=== PATIENT | female | born 1990 | race Caucasian/White ===

== ENCOUNTER 2017-12-13 12:43 | Inpatient (IN) | payer OTHER ==
[2017-12-13] MEDS ORDERED: PITOCIN 30 UNITS/ LR 500 ML 500 ML IV SCH (14:00)
[2017-12-13] MEDS: Lactated Ringers 1,000 ML IV SCH ×2 (14:11→15:26)
[2017-12-13 14:33] LABS: BASOPHIL % 0.1 % (0.0-0.4); Basophil (Absolute #) 0.01 (0-0.4); Eosinophil % 0.2 % (0.00-5.0); Eosinophil (Absolute #) 0.02 (0-0.5); Granulocyte Absolute (ANC) 9.74 (1.4-6.9); Granulocytes % 80.4 % (36.0-66.0); Hematocrit 37.6 % (35-47); Hemoglobin 12.1 gm/dl (12.0-16.0); Lymphocyte (Absolute #) 1.59 (1.0-4.6); Lymphocytes % 13.1 % (24.0-44.0); Mean Corpuscular Hgb Concent. 32.2 g/dl (32-36); Monocyte (Absolute #) 0.75 (0.0-1.3); Monocytes % 6.2 % (0.0-12.0); Platelet Count 227 K/mm3 (150-450); Red Blood Count 4.32 M/mm3 (4.1-5.4); Red Cell Distribution Width 15.1 % (11.5-14.0); White Blood Count 12.1 K/mm3 (4.0-10.5)
[2017-12-13] MEDS ORDERED: Lactated Ringers 1,000 ML IV ONE (14:34)
[2017-12-13] MEDS ORDERED: OB EPIDURAL NAROPIN/SUFENTANIL IN NACL EPIDURAL PRN (14:34)
[2017-12-13] MEDS ORDERED: Ephedrine Sulfate 50 MG/ML IV PRN (14:34)
[2017-12-13] MEDS ORDERED: OMNIPEN 2 GM IV SCH (14:45)
[2017-12-13] MEDS ORDERED: OMNIPEN 2 GM / NACL 100ML 100 ML IV ONE (14:45)
[2017-12-13 16:53] LABS: Amphetamine,Urine NEGATIVE (NEGATIVE); Barbiturate,Urine NEGATIVE (NEGATIVE); Benzodiazepine,Urine NEGATIVE (NEGATIVE); Cocaine,Urine NEGATIVE (NEGATIVE); Methadone,Urine NEGATIVE (NEGATIVE); Opiate,Urine NEGATIVE (NEGATIVE); PCP,Urine NEGATIVE (NEGATIVE); THC,Urine NEGATIVE (NEGATIVE)
[2017-12-13] MEDS ORDERED: Mylicon 80MG PO PRN (17:16)
[2017-12-13] MEDS ORDERED: Rhogam Plus 300 MCG IM ONE (17:16)
[2017-12-13] MEDS ORDERED: TUCKS TP PRN (17:16)
[2017-12-13] MEDS ORDERED: Adacel Vial IM ONE (17:16)
[2017-12-13] MEDS ORDERED: Dermoplast Spray TP PRN (17:16)
[2017-12-13] MEDS ORDERED: NORCO 5/325 MG PO PRN (17:16)
[2017-12-13] MEDS ORDERED: Restoril 15 MG PO PRN (17:16)
[2017-12-13] MEDS ORDERED: Dulcolax 10 MG SUPP PR PRN (17:16)
[2017-12-13] MEDS ORDERED: TYLENOL EXTRA STRENGTH 500 MG PO PRN (17:16)
[2017-12-13] MEDS ORDERED: Anucort-HC SUPPOSITORY PR PRN (17:16)
[2017-12-13] MEDS ORDERED: CORTISONE 1% CREAM TP PRN (17:16)
[2017-12-13] MEDS ORDERED: Ambien 10 MG PO PRN (17:16)
[2017-12-13] MEDS ORDERED: LANSINOH 40 GM TOP PRN (17:16)
[2017-12-13] MEDS ORDERED: OMNIPEN 1GM / NaCl 100ML 100 ML IV SCH (17:59)
[2017-12-13 20:19] LABS: ABO TYPING O; ANTIBODY SCREEN NEGATIVE (NEGATIVE); RH TYPING NEGATIVE
[2017-12-13] MEDS: Colace 100 MG PO SCH (21:09)
[2017-12-13] MEDS: MOTRIN 400 MG PO PRN (23:00)
[2017-12-14 06:21] LABS: BASOPHIL % 0.2 % (0.0-0.4); Basophil (Absolute #) 0.02 (0-0.4); Eosinophil % 0.5 % (0.00-5.0); Eosinophil (Absolute #) 0.06 (0-0.5); Granulocyte Absolute (ANC) 9.52 (1.4-6.9); Granulocytes % 71.4 % (36.0-66.0); Hematocrit 30.6 % (35-47); Hemoglobin 9.8 gm/dl (12.0-16.0); Lymphocytes % 18.8 % (24.0-44.0); Mean Cell Volume 87.9 fl (78-100); Mean Platelet Volume 11.6 fl (6-9.5); Monocyte (Absolute #) 1.21 (0.0-1.3); Monocytes % 9.1 % (0.0-12.0); Platelet Count 205 K/mm3 (150-450); Red Blood Count 3.48 M/mm3 (4.1-5.4); Red Cell Distribution Width 14.9 % (11.5-14.0); White Blood Count 13.3 K/mm3 (4.0-10.5)
[2017-12-14 06:24] LABS: Mean Corpuscular Hemoglobin 28.1 pg (26-32)
[2017-12-14] MEDS: MOTRIN 400 MG PO PRN ×3 (06:31→21:50)
[2017-12-14] MEDS: Colace 100 MG PO SCH ×2 (11:43→21:50)
[2017-12-14] MEDS: FERREX 150 PO SCH (11:43)
[2017-12-14 20:59] VITALS: O2SAT 98
[2017-12-15] MEDS: MOTRIN 400 MG PO PRN ×2 (05:10→12:43)
--- NOTE | 2017-12-15 08:00 | PCM.DS ---
Discharge Summary Date of Admission: 12/13/17 14:45 Admitting Physician: JENNYFER LAM Consults: Consults on Case 12/13/17 14:34 Notify Anesthesia Provider PRN Primary Care Provider: MARCEL BAZAN Allergies Allergies No Known Drug Allergies Allergy (Unverified 09/06/14 21:46) Hospital Summary - Hospital Course Hospital Course: Pt is a 27 yo who came in at term [facility] with cervical change. SROM with clear fluid. Delivered baby vaginally without any complications. She did have a long first degree tear superior to the urethra, but not involving the urethra (and pt with minimal discomfort on urination). . Bleeding is decreasing. Denies dizziness. Only required motrin x 1 for pain control yesterday. Will be discharged to home today. - Vitals & Intake/Output Vital Signs: Vital Signs Temperature 98.3 F 12/15/17 02:00 Pulse Rate 81 12/15/17 02:00 Respiratory Rate 20 12/15/17 02:00 Blood Pressure 102/57 12/15/17 02:00 O2 Sat by Pulse Oximetry 98 12/14/17 20:00 Intake & Output: Intake & Output 12/12/17 12/13/17 12/14/17 12/15/17 11:59 11:59 11:59 11:59 Intake Total 1080 450 Balance 1080 450 Weight 187 kg - Lab Result Diagrams: 12/14/17 05:15 Discharge Exam General Appearance: no apparent distress, alert Neurologic Exam: oriented x 3, cooperative Skin Exam: normal color, warm, dry, No rash Eye Exam: eyes nml inspection Ears, Nose, Throat Exam: moist mucous membranes Neck Exam: normal inspection Respiratory Exam: normal breath sounds, lungs clear, No crackles/rales, No rhonchi, No wheezing Cardiovascular Exam: regular rate/rhythm, normal heart sounds, No murmur Gastrointestinal/Abdomen Exam: soft, normal bowel sounds, other (fundus firm inferior to umbilicus), No tenderness Extremity Exam: normal inspection, No pedal edema, No swelling Back Exam: normal inspection, No rash Final Diagnosis/Problem List - Final Discharge Diagnosis/Problem (1) Spontaneous vaginal delivery Current Visit: Yes Status: Acute Assessment & Plan: Doing great. home today on motrin prn. F/u with Dr. Bazan in 4-6 wks. (2) Anemia Current Visit: Yes Status: Acute Assessment & Plan: Home on iron. - Discharge Disposition: Home, Self-Care Condition: Good Prescriptions: New Ferrous Sulfate 325 mg PO DAILY #30 tablet Ibuprofen 800 mg PO TID PRN #30 tablet PRN Reason: Pain Continue Cyclobenzaprine HCl [Flexeril] 5 mg PO QHS PRN #5 tablet PRN Reason: Muscle Spasms Discontinued Alprazolam [Xanax 0.5 mg] 0.5 mg PO DAILY Follow up with: MARCEL BAZAN MD [Primary Care Provider] - 1 Week
[2017-12-15] MEDS: FERREX 150 PO SCH (12:43)
[2017-12-15] MEDS: Colace 100 MG PO SCH (12:43)
[2017-12-15 16:29] VITALS: BP 113/64; PULSE 89
--- NOTE | 2017-12-15 17:18 | XRAY ---
Indication: Right lower leg tenderness. No known injury. 2 days . Two-dimensional sonogram and color Doppler imaging of the major venous vessels of the right leg was performed. Comparison: None No thrombus seen in the examined deep venous vessels of the right leg including greater saphenous vein. Veins demonstrate normal compressibility. Venous waveforms are normal with and without augmentation. Targeted ultrasound over the anterior moy, region of interest, negative for suspicious solid/cystic mass or abnormal fluid collection. Impression: Right leg negative for DVT.
== END 2017-12-15 18:35 | disposition home or self-care (01) | DRG 775 ==
LOC: OB 12:43 → OBSVTOIN 14:45
PROVIDERS: ADMIT Family Medicine; ATTEND Family Medicine
PROC: 10E0XZZ Delivery of Products of Conception, External Approach (ICD-10-PCS; principal; 2017-12-13)
DX: O80 Encounter for full-term uncomplicated delivery (principal); Z3A.39 39 weeks gestation of pregnancy; Z37.0 Single live birth; D64.9 Anemia, unspecified
CPT/HCPCS: 36415; 80307; 85025; 85461; 86850; 86900; 86901; 90715; 93971; 96372; G0378; J0290; J2590; J2790; J2795; A9270-GY

== ENCOUNTER 2019-06-13 05:28 | Inpatient (IN) | payer OTHER ==
[2019-06-13] MEDS ORDERED: Pitocin 10 UNITS/ML ONE (05:45)
[2019-06-13] MEDS ORDERED: MOTRIN 400 MG ONE (06:08)
[2019-06-13] MEDS ORDERED: CORTISONE 1% CREAM TP PRN (06:10)
[2019-06-13] MEDS ORDERED: Dulcolax 10 MG SUPP PR PRN (06:10)
[2019-06-13] MEDS ORDERED: Dermoplast Spray TP PRN (06:10)
[2019-06-13] MEDS ORDERED: LANSINOH 40 GM TOP PRN (06:10)
[2019-06-13] MEDS ORDERED: TUCKS TP PRN (06:10)
[2019-06-13] MEDS ORDERED: Mylicon 80MG PO PRN (06:10)
[2019-06-13] MEDS ORDERED: NORCO 5/325 MG PO PRN (06:10)
[2019-06-13] MEDS ORDERED: Anucort-HC SUPPOSITORY PR PRN (06:10)
[2019-06-13] MEDS: MOTRIN 400 MG PO PRN ×3 (06:17→22:16)
[2019-06-13 06:45] LABS: BASOPHIL % 0.1 % (0.0-0.4); Basophil (Absolute #) 0.02 (0-0.4); Eosinophil % 0.4 % (0.00-5.0); Eosinophil (Absolute #) 0.07 (0-0.5); Granulocyte Absolute (ANC) 13.54 (1.4-6.9); Granulocytes % 81.4 % (36.0-66.0); Hematocrit 33.8 % (35-47); Hemoglobin 10.9 gm/dl (12.0-16.0); Lymphocyte (Absolute #) 1.92 (1.0-4.6); Lymphocytes % 11.5 % (24.0-44.0); Mean Cell Volume 87.8 fl (78-100); Mean Corpuscular Hemoglobin 28.3 pg (26-32); Mean Corpuscular Hgb Concent. 32.2 g/dl (32-36); Mean Platelet Volume 11.1 fl (6-9.5); Monocyte (Absolute #) 1.09 (0.0-1.3); Monocytes % 6.6 % (0.0-12.0); Platelet Count 252 K/mm3 (150-450); Red Blood Count 3.85 M/mm3 (4.1-5.4); Red Cell Distribution Width 15.3 % (11.5-14.0); White Blood Count 16.6 K/mm3 (4.0-10.5)
[2019-06-13 09:08] LABS: ABO TYPING O
[2019-06-13 09:09] LABS: ANTIBODY SCREEN NEGATIVE (NEGATIVE); RH TYPING NEGATIVE
[2019-06-13] MEDS: Colace 100 MG PO SCH ×2 (09:20→21:00)
[2019-06-13] MEDS: FERREX 150 PO SCH (10:17)
[2019-06-13] MEDS: TYLENOL EXTRA STRENGTH 500 MG PO PRN ×2 (11:03→19:19)
[2019-06-14] MEDS: TYLENOL EXTRA STRENGTH 500 MG PO PRN (01:54)
[2019-06-14 06:58] LABS: Hematocrit 29.8 % (35-47); Hemoglobin 9.3 gm/dl (12.0-16.0); Mean Cell Volume 89.2 fl (78-100); Mean Corpuscular Hemoglobin 27.8 pg (26-32); Mean Corpuscular Hgb Concent. 31.2 g/dl (32-36); Mean Platelet Volume 11.4 fl (6-9.5); Platelet Count 248 K/mm3 (150-450); Red Blood Count 3.34 M/mm3 (4.1-5.4); Red Cell Distribution Width 15.3 % (11.5-14.0); White Blood Count 12.7 K/mm3 (4.0-10.5)
[2019-06-14 07:16] LABS: BAND 4 % (0.0-2.0); Eosinophil 1 % (0.00-3.0); Lymphocytes 28 % (24-44); Monocyte 3 % (0.0-12.0); Neutrophils 64 % (36.0-66.0); Total Cells Counted 100
[2019-06-14 07:18] LABS: ANISOCYTOSIS 1+; Platelet Estimate NORMAL (NORMAL)
[2019-06-14 07:19] LABS: Granulocyte Absolute (ANC) 8.64 (1.4-6.9)
[2019-06-14] MEDS ORDERED: Rhogam Plus 300 MCG IM ONE (08:00)
[2019-06-14] MEDS: FERREX 150 PO SCH (09:04)
[2019-06-14] MEDS: Colace 100 MG PO SCH (09:04)
[2019-06-14] MEDS: MOTRIN 400 MG PO PRN ×2 (09:05→16:46)
--- NOTE | 2019-06-14 16:09 | PCM.DS ---
Discharge Summary Date of Admission: 06/13/19 05:28 Admitting Physician: MARCEL BAZAN Consults: Consults on Case 06/13/19 06:10 Notify Physician Primary Care Provider: MARCEL BAZAN Allergies Allergies No Known Drug Allergies Allergy (Unverified 09/06/14 21:46) Hospital Summary - Hospital Course Hospital Course: patient arrived and delivered precipitously on 06/13 within several minutes of arrival. had uncomplicated , minimal lochia and mild pain. baby was transferred for respiratory issues, mom GBS + and unable to give any prophylactic abx secondary to precip. delivery - Vitals & Intake/Output Vital Signs: Vital Signs Temperature 98.3 F 06/14/19 02:00 Pulse Rate 81 06/14/19 09:00 Respiratory Rate 18 06/14/19 09:00 Blood Pressure 109/53 06/14/19 09:00 O2 Sat by Pulse Oximetry Intake & Output: Intake & Output 06/12/19 06/13/19 06/14/19 06/15/19 11:59 11:59 11:59 11:59 Weight 83.461 kg - Lab Result Diagrams: 06/14/19 06:43 Lab Results-Last 24 Hrs: Lab Results-Last 24 Hours 06/13/19 06/14/19 Range/Units 07:30 06:43 WBC 12.7 H (4.0-10.5) K/mm3 RBC 3.34 L (4.1-5.4) M/mm3 Hgb 9.3 L (12.0-16.0) gm/dl Hct 29.8 L (35-47) % MCV 89.2 (78-100) fl MCH 27.8 (26-32) pg MCHC 31.2 L (32-36) g/dl RDW 15.3 H (11.5-14.0) % Plt Count 248 (150-450) K/mm3 MPV 11.4 H (6-9.5) fl Absolute Granulocytes 8.64 H (1.4-6.9) Segmented Neutrophils 64 (36.0-66.0) % Band Neutrophils 4 H (0.0-2.0) % Lymphocytes (Manual) 28 (24-44) % Monocytes (Manual) 3 (0.0-12.0) % Eosinophils (Manual) 1 (0.00-3.0) % Platelet Estimate NORMAL (NORMAL) RBC Morphology ABNORMAL Anisocytosis 1+ Screen SEE SEPERATE REPORT Discharge Exam General Appearance: no apparent distress, alert Respiratory Exam: normal breath sounds, lungs clear, No respiratory distress Cardiovascular Exam: regular rate/rhythm, normal heart sounds Gastrointestinal/Abdomen Exam: soft, No tenderness, No mass Extremity Exam: normal inspection, normal range of motion Skin Exam: normal color, warm, dry Final Diagnosis/Problem List - Final Discharge Diagnosis/Problem (1) Spontaneous vaginal delivery Current Visit: No Status: Acute Code(s): O80 - ENCOUNTER FOR FULL-TERM UNCOMPLICATED DELIVERY - Discharge Disposition: Home, Self-Care Condition: Stable Prescriptions: No Action Cyclobenzaprine HCl [Flexeril] 5 mg PO QHS PRN #5 tablet PRN Reason: Muscle Spasms Ferrous Sulfate 325 mg PO DAILY #30 tablet Ibuprofen 800 mg PO TID PRN #30 tablet PRN Reason: Pain Follow up with: MARCEL BAZAN MD [Primary Care Provider] - 1 Week
[2019-06-14 17:32] VITALS: BP 121/61; PULSE 79
== END 2019-06-14 17:55 | disposition home or self-care (01) | DRG 807 ==
LOC: INTOOBSV 05:28 → UNDOADMOB 05:28 → OBSVTOIN 05:28 → OB 05:28
PROVIDERS: ADMIT Family Medicine; ATTEND Family Medicine
PROC: 10E0XZZ Delivery of Products of Conception, External Approach (ICD-10-PCS; principal; 2019-06-13)
DX: O99.824 Streptococcus B carrier state complicating childbirth (principal); Z37.0 Single live birth; Z3A.40 40 weeks gestation of pregnancy
CPT/HCPCS: 36415; 85025; 85461; 86850; 86900; 86901; 87340; 96372; G0378; J2590; J2790; A9270-GY

== ENCOUNTER 2019-11-10 12:02 | Emergency (ER) | payer OTHER ==
[2019-11-10] MEDS ORDERED: TYLENOL 325 MG ONE (12:19)
[2019-11-10] MEDS ORDERED: MOTRIN 600 MG ONE (12:19)
[2019-11-10] MEDS: MOTRIN 600 MG PO STA (12:20)
--- NOTE | 2019-11-10 12:20 | ERPHSYRPT ---
- History of Present Illness Time Seen by Provider: 11/10/19 12:18 Source: patient Exam Limitations: no limitations Patient Subjective Stated Complaint: pt here for fever,aches, chills since last night Triage Nursing Assessment: pt alert, resp easy, skin w/d/p.moves all ext well , abd soft Physician History: c/o fever,aches, chills since last night Timing/Duration: yesterday Cough Quality/Degree: no cough Associated Symptoms: fever, chills, muscle aches, sore throat International travel in last 2 weeks: No Allergies/Adverse Reactions: No Known Drug Allergies Allergy (Verified 11/10/19 12:13) Hx Tetanus, Diphtheria Vaccination/Date Given: Yes Hx Influenza Vaccination/Date Given: No Hx Pneumococcal Vaccination/Date Given: No Immunizations Up to Date: Yes - Review of Systems Constitutional: Fever, Chills, Malaise Eyes: No Symptoms Ears, Nose, & Throat: Throat Pain Respiratory: No Symptoms Cardiac: No Symptoms Abdominal/Gastrointestinal: No Symptoms Genitourinary Symptoms: No Symptoms Musculoskeletal: No Symptoms - Past Medical History Pertinent Past Medical History: No Musculoskeletal History: Other - Past Surgical History Past Surgical History: Yes Neuro Surgical History: Other Other Surgical History: HEAD INJURY AGE OF 9. STATES THEY FIXED A FRACTURE OF SKULL - Social History Smoking Status: Never smoker Exposure to second hand smoke: No Drug Use: none Patient Lives Alone: No - Female History Hx Last Menstrual Period: unsure Hx Now: No - Nursing Vital Signs Nursing Vital Signs: Initial Vital Signs Pulse Rate 140 H 11/10/19 12:09 Respiratory Rate 18 11/10/19 12:09 Blood Pressure 126/76 11/10/19 12:09 O2 Sat by Pulse Oximetry 99 11/10/19 12:09 Pain Scale Pain Intensity 6 - Physical Exam General Appearance: no apparent distress, alert Eye Exam: PERRL/EOMI, eyes nml inspection Ears, Nose, Throat Exam: normal ENT inspection, TMs normal, pharynx normal, moist mucous membranes Neck Exam: normal inspection, non-tender, supple, full range of motion Respiratory Exam: normal breath sounds, lungs clear, No respiratory distress Cardiovascular Exam: regular rate/rhythm, normal heart sounds Gastrointestinal/Abdomen Exam: soft, No tenderness Back Exam: normal inspection, No CVA tenderness, No vertebral tenderness Extremity Exam: normal inspection, normal range of motion Neurologic Exam: alert, oriented x 3, cooperative, normal mood/affect, sensation nml, No motor deficits Skin Exam: normal color, warm, dry, No rash Lymphatic Exam: No adenopathy SpO2: 99 - Course Nursing assessment & vital signs reviewed: Yes Ordered Tests: Active Orders 24 hr Category Date Time Status BMP Stat Lab 11/10/19 12:25 Completed CBC W DIFF Stat Lab 11/10/19 12:25 Completed Medication Summary Discontinued Medications Generic Name Dose Route Start Last Admin Trade Name Carmelo PRN Reason Stop Dose Admin Acetaminophen 975 mg 11/10/19 12:16 11/10/19 12:21 Tylenol 325 Mg PO 11/10/19 12:17 975 mg STAT STA Administration Acetaminophen Confirm 11/10/19 12:19 Tylenol 325 Mg Administered 11/10/19 12:20 Dose 975 mg .ROUTE .STK-MED ONE Ibuprofen 600 mg 11/10/19 12:16 11/10/19 12:20 Motrin 600 Mg PO 11/10/19 12:17 600 mg STAT STA Administration Ibuprofen Confirm 11/10/19 12:19 Motrin 600 Mg Administered 11/10/19 12:20 Dose 600 mg .ROUTE .STK-MED ONE Lab/Rad Data: Laboratory Result Diagrams 11/10/19 12:25 11/10/19 12:25 Laboratory Results 11/10/19 11/10/19 11/10/19 Range/Units 12:25 12:25 12:25 WBC 5.6 (4.0-10.5) K/mm3 RBC 4.17 (4.1-5.4) M/mm3 Hgb 11.9 L (12.0-16.0) gm/dl Hct 37.3 (35-47) % MCV 89.4 (78-100) fl MCH 28.5 (26-32) pg MCHC 31.9 L (32-36) g/dl RDW 14.1 H (11.5-14.0) % Plt Count 178 (150-450) K/mm3 MPV 11.0 (7.5-11.0) fl Gran % 76.5 H (36.0-66.0) % Eos # (Auto) 0.01 (0-0.5) Absolute Lymphs (auto) 0.66 L (1.0-4.6) Absolute Monos (auto) 0.64 (0.0-1.3) Lymphocytes % 11.7 L (24.0-44.0) % Monocytes % 11.4 (0.0-12.0) % Eosinophils % 0.2 (0.00-5.0) % Basophils % 0.2 (0.0-0.4) % Absolute Granulocytes 4.30 (1.4-6.9) Basophils # 0.01 (0-0.4) Sodium 138 (137-145) mmol/L Potassium 3.9 (3.5-5.1) mmol/L Chloride 106 (98-107) mmol/L Carbon Dioxide 25 (22-30) mmol/L Anion Gap 12.3 (5-15) MEQ/L BUN 10 (7-17) mg/dL Creatinine 0.59 (0.52-1.04) mg/dL Estimated GFR > 60.0 ML/MIN Glucose 99 (74-106) mg/dL Calcium 9.2 (8.4-10.2) mg/dL Influenza Type A Ag POSITIVE (NEGATIVE) Influenza Type B Ag NEGATIVE (NEGATIVE) RSV (PCR) NEGATIVE (Negative) - Progress Progress: improved Air Movement: good Counseled pt/family regarding: lab results, diagnosis, need for follow-up - Departure Departure Disposition: Home Clinical Impression: Influenza A Condition: Stable Critical Care Time: No Referrals: MARCEL BAZAN MD [Primary Care Provider] - Instructions: Fever, Adult (DC), Flu, Adult (DC) Additional Instructions: Discharge/Care Plan GRACIELA VARGAS was seen on 11/10/19 in the Emergency Room. The patient was counseled regarding Diagnosis,Lab results, Imaging studies, need for follow up and when to return to the Emergency Room. Prescriptions given: Discharge Note I have spoken with the patient and/or caregivers. I have explained the patient' s condition, diagnosis and treatment plan based on the information available to me at this time. I have answered the patient's and/or caregiver's questions and addressed any concerns. The patient and/or caregivers have as good understanding of the patient's diagnosis, condition and treatment plan as can be expected at this point. The vital signs have been stable. The patient's condition is stable and appropriate for discharge from the emergency department. The patient will pursue further outpatient evaluation with the primary care physician or other designated or consulting physician as outlined in the discharge instructions. The patient and/or caregivers are agreeable to this plan of care and follow-up instructions have been explained in detail. The patient and/or caregivers have received these instruction. The patient/and or caregivers are aware that any significant change in condition or worsening of symptoms should prompt an immediate return to this or the closest emergency department or call 911. Prescriptions: Oseltamivir 75 mg [Tamiflu 75MG Capsule] 75 mg PO BID #10 cap
[2019-11-10] MEDS: TYLENOL 325 MG PO STA (12:21)
[2019-11-10 12:33] LABS: BASOPHIL % 0.2 % (0.0-0.4); Basophil (Absolute #) 0.01 (0-0.4); Eosinophil % 0.2 % (0.00-5.0); Eosinophil (Absolute #) 0.01 (0-0.5); Hematocrit 37.3 % (35-47); Hemoglobin 11.9 gm/dl (12.0-16.0); Lymphocyte (Absolute #) 0.66 (1.0-4.6); Lymphocytes % 11.7 % (24.0-44.0); Mean Cell Volume 89.4 fl (78-100); Mean Corpuscular Hemoglobin 28.5 pg (26-32); Mean Corpuscular Hgb Concent. 31.9 g/dl (32-36); Monocyte (Absolute #) 0.64 (0.0-1.3); Monocytes % 11.4 % (0.0-12.0); Neutrophil % 76.5 % (36.0-66.0); Platelet Count 178 K/mm3 (150-450); Red Blood Count 4.17 M/mm3 (4.1-5.4); Red Cell Distribution Width 14.1 % (11.5-14.0); White Blood Count 5.6 K/mm3 (4.0-10.5)
[2019-11-10 12:42] LABS: ANION GAP 12.3 MEQ/L (5-15); BLOOD UREA NITROGEN 10 mg/dL (7-17); CHLORIDE 106 mmol/L (98-107); Calcium 9.2 mg/dL (8.4-10.2); Carbon Dioxide 25 mmol/L (22-30); Creatinine 1 0.59 mg/dL (0.52-1.04); Glucose 99 mg/dL (74-106); Potassium 3.9 mmol/L (3.5-5.1); SODIUM 138 mmol/L (137-145)
[2019-11-10 13:08] LABS: INFLUENZA A POSITIVE (NEGATIVE); INFLUENZA B NEGATIVE (NEGATIVE); RESPIRATORY SYNCTIAL VIRUS NEGATIVE (Negative)
[2019-11-10] MEDS ORDERED: Tamiflu 75MG Capsule PO ONE (13:19)
[2019-11-10] MEDS: Tamiflu 75MG Capsule PO ONE (13:20)
[2019-11-10 13:54] VITALS: BP 107/67; PULSE 96; O2SAT 97
== END 2019-11-10 13:53 | disposition home or self-care (01) ==
LOC: ED 12:02
DX: J09.X2 Influenza due to identified novel influenza A virus with other respiratory manifestations (principal)
CPT/HCPCS: 36415; 80048; 85025; 87631; 99283; A9270-GY

== ENCOUNTER 2024-07-03 07:29 | Emergency (ER) | payer OTHER ==
[2024-07-03 07:48] VITALS: TEMP 97.6
[2024-07-03] MEDS ORDERED: Sodium Chloride 0.9% 1000 ML 1,000 ML ONE ×2 (08:00→10:14)
[2024-07-03] MEDS ORDERED: MORPHINE SULFATE 4 MG INJ ONE (08:00)
[2024-07-03] MEDS ORDERED: Zofran 4 MG/2 ML VIAL ONE (08:00)
[2024-07-03] MEDS: Sodium Chloride 0.9% 1000 ML 1,000 ML IV STA (08:03)
[2024-07-03] MEDS: MORPHINE SULFATE 4 MG INJ IV ONE (08:03)
[2024-07-03] MEDS: Zofran 4 MG/2 ML VIAL IV ONE (08:03)
--- NOTE | 2024-07-03 08:04 | ERPHSYRPT ---
- History of Present Illness Time Seen by Provider: 07/03/24 07:54 Historian: patient Exam Limitations: no limitations Patient Subjective Stated Complaint: pt here for pain to right lower abd that radiates to flank area, pain started at about 0400 this am with some vomiting Triage Nursing Assessment: pt alert, resp easy, moaning at time, restless in bed, skin w.d.p.chest clear, abd soft with bs heard, no edema noted. moves all ext well Physician History: 33 years old healthy female presented in the ER with complaints of sudden onset right lower quadrant pain waking her up from sleep around 4 AM with associated nausea and multiple episodes of nonprojectile, nonbilious vomiting without hematemesis. Patient reports some radiation of pain to the back and right flank area. Denies any associated urinary complaints. No fever or chills reported. Reports now pain is more in the suprapubic and the center of her abdomen. Allergies/Adverse Reactions: No Known Drug Allergies Allergy (Verified 07/03/24 07:38) Hx Tetanus, Diphtheria Vaccination/Date Given: No Hx Influenza Vaccination/Date Given: No Hx Pneumococcal Vaccination/Date Given: No Immunizations Up to Date: Yes Travel Risk - International Travel Have you traveled outside of the country in past 3 weeks: No - Emerging Infectious Disease Are you exhibiting symptoms associated with any current EIDs: Yes Symptoms: Abdominal Pain, Vomitting - Review of Systems Constitutional: No Symptoms Ears, Nose, & Throat: No Symptoms Respiratory: No Symptoms Cardiac: No Symptoms Abdominal/Gastrointestinal: Abdominal Pain, Nausea, Vomiting Genitourinary Symptoms: No Symptoms Musculoskeletal: Back Pain Skin: No Symptoms Neurological: No Symptoms Psychological: No Symptoms Endocrine: No Symptoms Hematologic/Lymphatic: No Symptoms - Past Medical History Pertinent Past Medical History: No Musculoskeletal History: Other - Past Surgical History Past Surgical History: Yes Neuro Surgical History: Other Other Surgical History: HEAD INJURY AGE OF 9. STATES THEY FIXED A FRACTURE OF SKULL - Female History Hx Last Menstrual Period: unsure Hx Now: (UNKN) - Social History Smoking Status: Never smoker Exposure to second hand smoke: No Drug Use: marijuana Patient Lives Alone: No - Social Determinants of Health Will the patient participate in the screening: Declined to provide - Nursing Vital Signs Nursing Vital Signs: Initial Vital Signs Pulse Rate 72 07/03/24 07:39 Respiratory Rate 14 07/03/24 07:39 Blood Pressure 139/87 07/03/24 07:39 O2 Sat by Pulse Oximetry 100 07/03/24 07:39 Pain Scale Pain Intensity 4 - Physical Exam General Appearance: no apparent distress Eye Exam: PERRL/EOMI Ears, Nose, Throat Exam: normal ENT inspection Neck Exam: normal inspection, full range of motion Respiratory Exam: normal breath sounds, lungs clear Cardiovascular Exam: regular rate/rhythm, normal heart sounds Gastrointestinal/Abdomen Exam: soft, normal bowel sounds, tenderness (Right lower quadrant/suprapubic), No guarding, No rebound Extremity Exam: normal inspection, normal range of motion Neurologic Exam: alert, oriented x 3, cooperative Skin Exam: normal color SpO2 Interpretation: normal SpO2: 100 O2 Delivery: Room Air Ordered Tests: Active Orders 24 hr Category Date Time Status IV Insertion STAT Care 07/03/24 07:54 Active NPO (ED) STAT Care 07/03/24 07:54 Active ABDOMEN AND PELVIS W/0 CONTRAS [CT] Stat Exams 07/03/24 07:54 Completed CBC W DIFF Stat Lab 07/03/24 08:11 Completed CMP Stat Lab 07/03/24 08:11 Completed CULTURE,URINE Stat Lab 07/03/24 07:54 Received HCG QUALITATIVE, URINE Stat Lab 07/03/24 07:54 Completed LIPASE Stat Lab 07/03/24 08:11 Completed UA W/RFX UR CULTURE Stat Lab 07/03/24 07:54 Completed Medication Summary Generic Name Dose Route Start Last Admin Trade Name Freq PRN Reason Stop Dose Admin Sodium Chloride 1,000 mls @ 125 mls/hr 07/03/24 10:15 07/03/24 12:26 Sodium Chloride 0.9% 1000 Ml IV 08/02/24 10:14 Infused .Q8H GRISEL Infusion Tamsulosin HCl 0.8 mg 07/04/24 10:11 07/03/24 10:19 Tamsulosin Hcl 0.4 Mg Cap PO 07/04/24 10:12 0.8 mg ONCE ONE Administration Discontinued Medications Generic Name Dose Route Start Last Admin Trade Name Freq PRN Reason Stop Dose Admin Acetaminophen 1,000 mg 07/03/24 11:32 07/03/24 11:42 Acetaminophen 500 Mg Tablet PO 07/03/24 11:33 1,000 mg STAT STA Administration Acetaminophen Confirm 07/03/24 11:40 Acetaminophen 500 Mg Tablet Administered 07/03/24 11:41 Dose 1,000 mg .ROUTE .STK-MED ONE Sodium Chloride 1,000 mls @ 999 mls/hr 07/03/24 07:54 07/03/24 09:08 Sodium Chloride 0.9% 1000 Ml IV 07/03/24 08:54 Infused .Q1H1M STA Infusion Sodium Chloride Confirm 07/03/24 08:00 Sodium Chloride 0.9% 1000 Ml Administered 07/03/24 08:01 Dose 1,000 mls @ ud .ROUTE .STK-MED ONE Ceftriaxone Sodium 2 gm in 100 mls @ 200 mls/hr 07/03/24 10:13 07/03/24 10:53 Rocephin 2 Gm/100 Ml Nacl IV 07/03/24 10:42 Infused STAT ONE Infusion Ceftriaxone Sodium Confirm 07/03/24 10:14 Rocephin 2 Gm/100 Ml Nacl Administered 07/03/24 10:15 Dose 2 gm in 100 mls @ ud IV .STK-MED ONE Ketorolac Tromethamine 30 mg 07/03/24 09:00 07/03/24 09:01 Ketorolac Tromethamine 30 Mg/Ml Inj IV 07/03/24 09:01 30 mg STAT ONE Administration Ketorolac Tromethamine Confirm 07/03/24 09:00 Ketorolac Tromethamine 30 Mg/Ml Inj Administered 07/03/24 09:01 Dose 30 mg .ROUTE .STK-MED ONE Morphine Sulfate 4 mg 07/03/24 07:54 07/03/24 08:03 Morphine Sulfate 4 Mg/Ml Injection IV 07/03/24 07:55 4 mg STAT ONE Administration Morphine Sulfate Confirm 07/03/24 08:00 Morphine Sulfate 4 Mg/Ml Injection Administered 07/03/24 08:01 Dose 4 mg .ROUTE .STK-MED ONE Ondansetron HCl 4 mg 07/03/24 07:54 07/03/24 08:03 Ondansetron Hcl 4 Mg/2 Ml Vial IV 07/03/24 07:55 4 mg STAT ONE Administration Ondansetron HCl Confirm 07/03/24 08:00 Ondansetron Hcl 4 Mg/2 Ml Vial Administered 07/03/24 08:01 Dose 4 mg .ROUTE .STK-MED ONE Tamsulosin HCl Confirm 07/03/24 10:14 Tamsulosin Hcl 0.4 Mg Cap Administered 07/03/24 10:15 Dose 0.8 mg .ROUTE .STK-MED ONE Tamsulosin HCl Confirm 07/03/24 11:40 Tamsulosin Hcl 0.4 Mg Cap Administered 07/03/24 11:41 Dose 0.8 mg .ROUTE .STK-MED ONE Lab/Rad Data: Laboratory Result Diagrams 07/03/24 08:11 07/03/24 08:11 Laboratory Results 07/03/24 07/03/24 07/03/24 Range/Units 08:11 08:11 07:54 WBC 16.2 H (3.98-10.04) x10^3/uL RBC 4.37 (3.93-5.22) x10^6/uL Hgb 13.1 (11.2-15.7) g/dL Hct 39.0 (34.1-44.9) % MCV 89.2 (79.4-94.8) fL MCH 30.0 (25.6-32.2) pg MCHC 33.6 (32.2-35.5) g/dL RDW 12.7 (11.7-14.4) % Plt Count 248 (182-369) x10^3/uL MPV 11.2 (9.4-12.3) fL Gran % 86.8 H (34.0-71.1) % Immature Gran % (Auto) 0.4 (0.001-0.429) % Nucleat RBC Rel Count 0.0 (0.00-0.2) % Eos # (Auto) 0.03 L (0.04-0.36) x10^3/uL Immature Gran # (Auto) 0.06 H (0.001-0.031) x10^3u/L Absolute Lymphs (auto) 1.37 (1.18-3.74) x10^3/uL Absolute Monos (auto) 0.63 (0.24-0.86) x10^3/uL Absolute Nucleated RBC 0.00 (0.00-0.012) x10^3u/L Lymphocytes % 8.5 L (19.3-51.7) % Monocytes % 3.9 L (4.7-12.5) % Eosinophils % 0.2 L (0.7-5.8) % Basophils % 0.2 (0.1-1.2) % Absolute Granulocytes 14.06 H (1.56-6.13) x10^3/uL Basophils # 0.04 (0.01-0.08) x10^3/uL Sodium 140 (135-145) mmol/L Potassium 4.4 (3.5-5.1) mmol/L Chloride 105 (98-107) mmol/L Carbon Dioxide 22 (22-30) mmol/L Anion Gap 16.9 H (5-15) MEQ/L BUN 13 (7-17) mg/dL Creatinine 0.88 (0.52-1.04) mg/dL Estimated GFR 89.5 ML/MIN Glucose 131 H (74-106) mg/dL Calcium 9.9 (8.4-10.2) mg/dL Total Bilirubin 0.40 (0.2-1.3) mg/dL AST 26 (14-36) U/L ALT 31 (0-35) U/L Alkaline Phosphatase 77 (38-126) U/L Serum Total Protein 8.4 H (6.3-8.2) g/dL Albumin 5.0 (3.5-5.0) g/dL Lipase 51 (23-300) U/L Urine Color (Yellow) Urine Appearance (Clear) Urine pH (4.6-8.0) Ur Specific [place] (1.005-1.030) Urine Protein (Negative) Urine Glucose (UA) (Negative) mg/dL Urine Ketones (Negative) Urine Blood (Negative) Urine Nitrite (Negative) Urine Bilirubin (Negative) Urine Urobilinogen (0.2) mg/dL Ur Leukocyte Esterase (Negative) U Hyaline Cast (Auto) (0-2) /LPF Urine Microscopic RBC (0-5) /HPF Urine Microscopic WBC (0-5) /HPF Ur Epithelial Cells (None Seen) /HPF Urine Bacteria (None Seen) /HPF Urine Culture Reflexed (NO) Urine HCG, Qual NEGATIVE (NEGATIVE) 07/03/24 Range/Units 07:54 WBC (3.98-10.04) x10^3/uL RBC (3.93-5.22) x10^6/uL Hgb (11.2-15.7) g/dL Hct (34.1-44.9) % MCV (79.4-94.8) fL MCH (25.6-32.2) pg MCHC (32.2-35.5) g/dL RDW (11.7-14.4) % Plt Count (182-369) x10^3/uL MPV (9.4-12.3) fL Gran % (34.0-71.1) % Immature Gran % (Auto) (0.001-0.429) % Nucleat RBC Rel Count (0.00-0.2) % Eos # (Auto) (0.04-0.36) x10^3/uL Immature Gran # (Auto) (0.001-0.031) x10^3u/L Absolute Lymphs (auto) (1.18-3.74) x10^3/uL Absolute Monos (auto) (0.24-0.86) x10^3/uL Absolute Nucleated RBC (0.00-0.012) x10^3u/L Lymphocytes % (19.3-51.7) % Monocytes % (4.7-12.5) % Eosinophils % (0.7-5.8) % Basophils % (0.1-1.2) % Absolute Granulocytes (1.56-6.13) x10^3/uL Basophils # (0.01-0.08) x10^3/uL Sodium (135-145) mmol/L Potassium (3.5-5.1) mmol/L Chloride (98-107) mmol/L Carbon Dioxide (22-30) mmol/L Anion Gap (5-15) MEQ/L BUN (7-17) mg/dL Creatinine (0.52-1.04) mg/dL Estimated GFR ML/MIN Glucose (74-106) mg/dL Calcium (8.4-10.2) mg/dL Total Bilirubin (0.2-1.3) mg/dL AST (14-36) U/L ALT (0-35) U/L Alkaline Phosphatase (38-126) U/L Serum Total Protein (6.3-8.2) g/dL Albumin (3.5-5.0) g/dL Lipase (23-300) U/L Urine Color Yellow (Yellow) Urine Appearance Cloudy A (Clear) Urine pH 6.5 (4.6-8.0) Ur Specific [place] >=1.030 A (1.005-1.030) Urine Protein 30 (Negative) Urine Glucose (UA) Negative (Negative) mg/dL Urine Ketones Trace A (Negative) Urine Blood Negative (Negative) Urine Nitrite Negative (Negative) Urine Bilirubin Negative (Negative) Urine Urobilinogen 0.2 (0.2) mg/dL Ur Leukocyte Esterase Negative (Negative) U Hyaline Cast (Auto) 3-5 A (0-2) /LPF Urine Microscopic RBC 3-5 (0-5) /HPF Urine Microscopic WBC 3-5 (0-5) /HPF Ur Epithelial Cells Moderate A (None Seen) /HPF Urine Bacteria Moderate A (None Seen) /HPF Urine Culture Reflexed YES (NO) Urine HCG, Qual (NEGATIVE) - Progress Progress: improved Progress Note: 07/03/24 11:42 33 years old is evaluated for right flank pain/right lower quadrant pain sudden onset with multiple episodes of vomiting. She is given fluids and symptomatic treatment with morphine and Toradol, on reevaluation her pain is better. Workup showed white count of 16, normal renal functions. Questionable UTI, given a dose of Rocephin. CT showed 3 mm left UVJ stone with high-grade obstruction and perinephric stranding. No acute appendicitis or any other acute intra- abdominal pelvic findings. She is given Flomax. We do not have urology services available, I have discussed with [facility]RAFTER (CAD) [employer] for Dr. Nagi Crain at [facility], reviewed history, workup, agreed with continue antibiotics, pain medicine, Flomax and patient would be evaluated in the office tomorrow. I would give her a strainer and I hope that she would be able to pass this stone. I have shared the results of workup with patient and urology recommendations and plan of care which she understands and agree. Discussed signs symptoms of worsening needing return to ER which she seems understanding. Stable for discharge. 07/03/24 11:43 Will see patient in: other (Urology nurse practitioner for Dr. Sanchez) Counseled pt/family regarding: diagnosis, need for follow-up, rad results Medical Desision Making - Discussion of managment Care discussed with:: specialist (DRAFTER (CAD) E[employer] for Dr. Nagi Crain urology) Reviewed:: Test results Agreed on:: Treatment plan, need for follow-up Will see patient: In office - Diagnostic Testing Diagnostic test were ordered, analyzed, and reviewed by me: Yes Radiological Interpretation: Reviewed by me - Risk of complications The pt has a mod risk of morbidity or mortality based on: Need for prescription drug management - Departure Departure Disposition: Home Clinical Impression: Ureterolithiasis Condition: Stable Critical Care Time: No Referrals: MARCEL BAZAN MD [Primary Care Provider] - Follow up/PCP as directed JOHN SANCHEZ [NON-STAFF PHY W/O PRIVILEGES] - Follow up/PCP as directed (Call for reevaluation appointment) Instructions: Urinary tract infections in adults, Kidney stones in adults, Severe Abdominal Pain, Adult (DC) Additional Instructions: Drink plenty of fluids. Take Tylenol/pain medicines as needed. Follow-up with urology for reevaluation tomorrow as recommended. Return to ER for intractable pain/vomiting/difficulty urination or if develop fever chills etc. Prescriptions: Hydrocodone/Acetaminophen [Hydrocodone-Acetamin 5-325 mg] 1 tab PO Q6HPRN PRN 3 Days #12 tablet MDD 4 PRN Reason: Pain Tamsulosin HCl 0.4 mg [Flomax 0.4 MG] 0.4 mg PO DAILY #30 cap Cefpodoxime Proxetil 200 mg [Vantin 200 mg] 200 mg PO BID 7 Days #14 tablet Ondansetron ODT 4 MG [Zofran Odt 4 mg] 1 ea PO QIDPRN PRN #7 tablet PRN Reason: n/v
[2024-07-03 08:17] LABS: Absolute Neutrophil Ct (ANC) 14.06 x10^3/uL (1.56-6.13); BASOPHIL % 0.2 % (0.1-1.2); Basophil (Absolute #) 0.04 x10^3/uL (0.01-0.08); Eosinophil % 0.2 % (0.7-5.8); Eosinophil (Absolute #) 0.03 x10^3/uL (0.04-0.36); Hemoglobin 13.1 g/dL (11.2-15.7); IMMATURE GRAN # 0.06 x10^3u/L (0.001-0.031); IMMATURE GRAN % 0.4 % (0.001-0.429); Lymphocyte (Absolute #) 1.37 x10^3/uL (1.18-3.74); Lymphocytes % 8.5 % (19.3-51.7); Mean Cell Volume 89.2 fL (79.4-94.8); Mean Corpuscular Hgb Concent. 33.6 g/dL (32.2-35.5); Mean Platelet Volume 11.2 fL (9.4-12.3); Monocyte (Absolute #) 0.63 x10^3/uL (0.24-0.86); Monocytes % 3.9 % (4.7-12.5); Neutrophil % 86.8 % (34.0-71.1); Platelet Count 248 x10^3/uL (182-369); Red Blood Count 4.37 x10^6/uL (3.93-5.22); Red Cell Distribution Width 12.7 % (11.7-14.4); White Blood Count 16.2 x10^3/uL (3.98-10.04)
[2024-07-03 08:17] LABS: HCG URINE TEST NEGATIVE (NEGATIVE)
[2024-07-03 08:27] LABS: ANION GAP 16.9 MEQ/L (5-15); BILIRUBIN,TOTAL 0.4 mg/dL (0.2-1.3); Calcium 9.9 mg/dL (8.4-10.2); Creatinine 1 0.88 mg/dL (0.52-1.04); EST GLOMERULAR FILTRATION RATE 89.5 ML/MIN; Potassium 4.4 mmol/L (3.5-5.1); Total Protein 8.4 g/dL (6.3-8.2)
[2024-07-03 08:28] LABS: Appearance Cloudy (Clear); Bacteria Moderate /HPF (None Seen); Bilirubin Negative (Negative); Blood Negative (Negative); Epithelial Cells Moderate /HPF (None Seen); Glucose, Urine Negative (Negative); Ketones Trace (Negative); Leukocyte Esterase Negative (Negative); Nitrite Negative (Negative); Ph 6.5 (4.6-8.0); Protein,Urine Dip 30 (Negative); Specific Gravity >=1.030 (1.005-1.030); Urobilinogen 0.2 mg/dL (0.2)
[2024-07-03] MEDS ORDERED: TORAdol 30 mg Injection ONE (09:00)
[2024-07-03] MEDS: TORAdol 30 mg Injection IV ONE (09:01)
--- NOTE | 2024-07-03 09:31 | XRAY ---
Indication: Right lower quadrant/right flank pain. Vomiting. Multiple contiguous axial images obtained through the abdomen and pelvis without contrast using renal stone protocol. Comparison: None Lung bases demonstrates right middle and right lower lobe peripheral indeterminant noncalcified nodules, largest right lower lobe measuring 1 cm. No infiltrate or effusion. Heart not enlarged. There is 2-3 mm right UVJ calculus. Proximal right ureter is prominent up to 1 cm along with mild hydronephrosis and mild right renal edema favoring high-grade obstructive uropathy. No free fluid/air. Noncontrasted stomach and bowel loops appear nonobstructed with normal appendix. Uterus demonstrates IUD in situ. Remaining liver, gallbladder, pancreas, spleen, adrenal glands, left kidney, left ureter, bladder, uterus, and aorta are unremarkable for noncontrast exam. Osseous structures intact. Impression: 1. 2-3 mm right UVJ calculus with obstructive uropathy as detailed. 2. Indeterminate right middle and right lower lobe noncalcified nodules. Findings possibly granulomatous in this demographic. Outside comparison studies recommended if available. If not, baseline CT chest with follow-up CT per Fleischner guidelines recommended.
[2024-07-03 09:53] VITALS: RESP 18
[2024-07-03] MEDS ORDERED: ROCEPHIN 2 GM/100 ML NACL 2 GM/100 ML IVPB IV ONE (10:14)
[2024-07-03] MEDS ORDERED: Flomax 0.4 MG ONE ×2 (10:14→11:40)
[2024-07-03] MEDS: ROCEPHIN 2 GM/100 ML NACL 2 GM/100 ML IVPB IV ONE (10:18)
[2024-07-03] MEDS: Sodium Chloride 0.9% 1000 ML 1,000 ML IV SCH (10:19)
[2024-07-03] MEDS: Flomax 0.4 MG PO ONE (10:19)
[2024-07-03] MEDS ORDERED: TYLENOL EXTRA STRENGTH 500 MG ONE (11:40)
[2024-07-03] MEDS: TYLENOL EXTRA STRENGTH 500 MG PO STA (11:42)
[2024-07-03 12:27] VITALS: BP 99/61; PULSE 88
[2024-07-03 12:33] VITALS: O2SAT 100
== END 2024-07-03 12:34 | disposition home or self-care (01) ==
LOC: ED 07:29
DX: N13.2 Hydronephrosis with renal and ureteral calculous obstruction (principal); R10.31 Right lower quadrant pain; R11.2 Nausea with vomiting, unspecified; Z79.891 Long term (current) use of opiate analgesic; Z79.899 Other long term (current) drug therapy
CPT/HCPCS: 36000; 36415; 74176; 80053; 81001; 81025; 83690; 85025; 87086; 96360; 96361; 96365; 96374; 96375; 99285; J0696; J1885; J2270; J2405; A9270-GY